=== PATIENT | male | born 1955 | race Caucasian/White ===

== ENCOUNTER 2018-10-16 13:10 | Inpatient (IN) | payer MEDICARE, OTHER ==
[2018-10-16 15:05] LABS: ADD MAN DIFF? NO
[2018-10-16] MEDS: CEFTRIAXONE 1 GM/50 ML (PMX) 50 ML IVPB (15:11)
[2018-10-16 15:13] LABS: WHITE BLOOD COUNT 6.9 10^3/ul (4.8-10.8)
[2018-10-16 15:13] LABS: BASOPHIL # 0.1 10^3/ul (0.0-0.1); BASOPHILS % 0.7 % (0.0-2.0); EOSINOPHILS # 0.4 10^3/ul (0.0-0.5); EOSINOPHILS % 5.7 % (0.0-7.0); HEMATOCRIT 42.6 % (42.0-52.0); HEMOGLOBIN 12.7 g/dl (14.0-18.0); LYMPHOCYTES # 0.8 10^3/ul (0.8-2.9); LYMPHOCYTES % 11.5 % (15.0-51.0); MEAN CORPUSCULAR HEMOGLOBIN 26.8 pg (29.0-33.0); MEAN CORPUSCULAR HGB CONC 29.8 g/dl (32.0-37.0); MEAN CORPUSCULAR VOLUME 90.1 fl (82.0-101.0); MEAN PLATELET VOLUME 9.2 fl (7.4-10.4); MONOCYTE # 0.5 10^3/ul (0.3-0.9); MONOCYTES % 7.4 % (0.0-11.0); NEUTROPHIL # 5.1 10^3/ul (1.6-7.5); NEUTROPHILS % 74.3 % (39.0-77.0); PLATELET COUNT 277 10^3/UL (140-415); RED BLOOD COUNT 4.73 10^6/ul (4.70-6.10); RED CELL DISTRIBUTION WIDTH 16.6 % (11.5-14.5)
[2018-10-16] MEDS: VANCOMYCIN IV PER PHARMACY XX (15:35)
[2018-10-16 15:36] LABS: ANION GAP 4 (5-13); BLOOD UREA NITROGEN 15 mg/dl (7-20); CALCIUM 8.5 mg/dl (8.4-10.2); CARBON DIOXIDE 33 mmol/L (21-31); CHLORIDE 101 mmol/L (97-110); CREATININE 1.04 mg/dl (0.61-1.24); Estimated GFR > 60 mL/min (>60); GLUCOSE 103 mg/dl (70-220); SODIUM 138 mmol/L (135-144)
[2018-10-16] MEDS: VANCOMYCIN 1 GM (PMX) 250 ML IVPB (15:40)
[2018-10-16 15:41] LABS: C-REACTIVE PROTEIN 3.3 mg/dl (0.0-0.9)
[2018-10-16 15:57] LABS: PROCALCITONIN 0.04 ng/mL (0.00-0.10)
[2018-10-16] MEDS ORDERED: ONDANSETRON 4 MG INJ IV ×2 (16:30→17:00)
[2018-10-16] MEDS ORDERED: ACETAMINOPHEN 325 MG TAB PO ×2 (16:30→17:00)
[2018-10-16 16:40] LABS: ERYTHROCYTE SEDIMENTATION RATE 22 mm/Hr (0-20)
[2018-10-16] MEDS ORDERED: MAGNESIUM HYDROXIDE 30ML CUP PO (17:00)
[2018-10-16] MEDS ORDERED: VANCOMYCIN IV PER PHARMACY XX (17:00)
[2018-10-16] MEDS ORDERED: NACL 0.9% 3 ML SYG IV (17:00)
[2018-10-16] MEDS ORDERED: CEFTRIAXONE 1 GM/50 ML (PMX) 50 ML IVPB (17:00)
[2018-10-16 17:29] LABS: CREATINE KINASE 70 IU/L (23-200)
[2018-10-16] MEDS ORDERED: METOPROLOL 5 MG INJ IV (17:30)
[2018-10-16 17:42] LABS: CK INDEX 3.3; CK-MB 2.29 ng/ml (0.0-2.4); TROPONIN-I < 0.012 ng/ml (0.000-0.120)
[2018-10-16] MEDS: FUROSEMIDE 20 MG TAB PO (20:58)
[2018-10-16] MEDS: HYDROCODONE/APAP (5/325) TAB PO (22:05)
[2018-10-16 23:00] LABS: CREATINE KINASE 64 IU/L (23-200)
[2018-10-16 23:13] LABS: CK INDEX 3.3; CK-MB 2.14 ng/ml (0.0-2.4); TROPONIN-I < 0.012 ng/ml (0.000-0.120)
[2018-10-17] MEDS: HYDROCODONE/APAP (5/325) TAB PO ×2 (04:32→20:45)
[2018-10-17 05:20] LABS: ADD MAN DIFF? NO
[2018-10-17 05:30] LABS: WHITE BLOOD COUNT 6.2 10^3/ul (4.8-10.8)
[2018-10-17 05:30] LABS: BASOPHIL # 0.1 10^3/ul (0.0-0.1); BASOPHILS % 1.1 % (0.0-2.0); EOSINOPHILS # 0.4 10^3/ul (0.0-0.5); EOSINOPHILS % 5.8 % (0.0-7.0); HEMOGLOBIN 12.1 g/dl (14.0-18.0); LYMPHOCYTES # 0.9 10^3/ul (0.8-2.9); LYMPHOCYTES % 14.1 % (15.0-51.0); MEAN CORPUSCULAR HEMOGLOBIN 26.6 pg (29.0-33.0); MEAN CORPUSCULAR HGB CONC 30.3 g/dl (32.0-37.0); MEAN CORPUSCULAR VOLUME 87.9 fl (82.0-101.0); MEAN PLATELET VOLUME 9.4 fl (7.4-10.4); MONOCYTE # 0.4 10^3/ul (0.3-0.9); MONOCYTES % 6.3 % (0.0-11.0); NEUTROPHIL # 4.5 10^3/ul (1.6-7.5); NEUTROPHILS % 72.4 % (39.0-77.0); PLATELET COUNT 260 10^3/UL (140-415); RED BLOOD COUNT 4.55 10^6/ul (4.70-6.10)
[2018-10-17 05:43] LABS: CREATINE KINASE 53 IU/L (23-200)
[2018-10-17 05:48] LABS: ALANINE AMINOTRANSFERASE 27 IU/L (13-69); ALBUMIN 2.8 g/dl (3.3-4.9); ALBUMIN/GLOBULIN RATIO 0.73; ALKALINE PHOSPHATASE 95 IU/L (42-121); ANION GAP 4 (5-13); ASPARTATE AMINO TRANSFERASE 27 IU/L (15-46); BILIRUBIN,INDIRECT 0.8 mg/dl (0-1.1); BILIRUBIN,TOTAL 0.8 mg/dl (0.2-1.3); BLOOD UREA NITROGEN 17 mg/dl (7-20); CALCIUM 8.3 mg/dl (8.4-10.2); CARBON DIOXIDE 30 mmol/L (21-31); CHLORIDE 104 mmol/L (97-110); CHOL/HDL RATIO 4.9 RATIO; CHOLESTEROL 108 mg/dl (100-200); Estimated GFR > 60 mL/min (>60); GLUCOSE 100 mg/dl (70-220); HDL CHOLESTEROL 22 mg/dl (30-78); LDL CHOLESTEROL,CALCULATED 74 mg/dl; MAGNESIUM 1.9 mg/dl (1.7-2.5); POTASSIUM 4.4 mmol/L (3.5-5.1); SODIUM 138 mmol/L (135-144); TOTAL PROTEIN 6.6 g/dl (6.1-8.1); TRIGLYCERIDES 62 mg/dl (0-149)
[2018-10-17 05:57] LABS: CK INDEX 3.6; CK-MB 1.93 ng/ml (0.0-2.4); TROPONIN-I < 0.012 ng/ml (0.000-0.120)
[2018-10-17 06:02] LABS: FREE THYROXINE INDEX (Calc) 2.72 ug/ml (0.65-3.89); T3 UPTAKE 50.3 % (23.5-40.5); T4 (THYROXINE) 5.4 ug/dl (5.5-11.0)
[2018-10-17] MEDS: PANTOPRAZOLE (EC) 40 MG TAB PO (06:14)
[2018-10-17] MEDS ORDERED: HEPARIN 25000 UNITS/250 ML 250 ML IV (08:30)
[2018-10-17] MEDS ORDERED: HEPARIN 1000 UNITS/ML 10 ML INJ IV ×2 (08:30)
[2018-10-17] MEDS: LEVOTHYROXINE 25 MCG TAB PO (08:31)
[2018-10-17] MEDS: DIGOXIN 0.25 MG TAB PO (08:31)
[2018-10-17] MEDS: FUROSEMIDE 20 MG TAB PO ×2 (08:32→20:44)
[2018-10-17] MEDS: AMLODIPINE 5 MG TAB PO (08:32)
[2018-10-17] MEDS: BENAZEPRIL 20 MG TAB PO (08:32)
[2018-10-17] MEDS: ENOXAPARIN 100 MG/ML SYG SC ×2 (09:57→21:51)
[2018-10-17] MEDS ORDERED: CEFTRIAXONE 1 GM/50 ML (PMX) 50 ML IVPB (17:30)
[2018-10-17] MEDS: AMPICILLIN/SULB 3 GM/NS (PMX) 100 ML IVPB (18:28)
[2018-10-17] MEDS: VANCOMYCIN HCL 2 GM in SOD CHLORIDE 0.9% 500 ML IVPB (19:48)
[2018-10-18] MEDS: AMPICILLIN/SULB 3 GM/NS (PMX) 100 ML IVPB ×5 (00:11→23:49)
[2018-10-18] MEDS: PANTOPRAZOLE (EC) 40 MG TAB PO (05:46)
[2018-10-18] MEDS: LEVOTHYROXINE 25 MCG TAB PO ×2 (05:46→08:37)
[2018-10-18 06:15] LABS: HEMATOCRIT 40.1 % (42.0-52.0); HEMOGLOBIN 12.3 g/dl (14.0-18.0); MEAN CORPUSCULAR HEMOGLOBIN 26.6 pg (29.0-33.0); MEAN CORPUSCULAR HGB CONC 30.7 g/dl (32.0-37.0); MEAN CORPUSCULAR VOLUME 86.8 fl (82.0-101.0); MEAN PLATELET VOLUME 9.4 fl (7.4-10.4); PLATELET COUNT 244 10^3/UL (140-415); POSITIVE DIFF @See below; RED BLOOD COUNT 4.62 10^6/ul (4.70-6.10); RED CELL DISTRIBUTION WIDTH 16.9 % (11.5-14.5)
[2018-10-18 06:15] LABS: WHITE BLOOD COUNT 5.2 10^3/ul (4.8-10.8)
[2018-10-18 06:23] LABS: ADD MAN DIFF? YES
[2018-10-18 06:39] LABS: ANION GAP 5 (5-13); BLOOD UREA NITROGEN 21 mg/dl (7-20); CALCIUM 8.2 mg/dl (8.4-10.2); CARBON DIOXIDE 28 mmol/L (21-31); CHLORIDE 102 mmol/L (97-110); CREATININE 1.14 mg/dl (0.61-1.24); GLUCOSE 98 mg/dl (70-220); MAGNESIUM 1.8 mg/dl (1.7-2.5); POTASSIUM 4.2 mmol/L (3.5-5.1); SODIUM 135 mmol/L (135-144)
[2018-10-18 07:41] LABS: ANISOCYTOSIS 1+ (0-0); BAND NEUTROPHILS #M 0.1 10^3/ul (0.0-0.6); BAND NEUTROPHILS % (M) 3 % (0-4); BASOPHILS % (M) 1 % (0-2); BURR CELLS 1+ (0-0); EOSINOPHILS % (M) 2 % (0-7); GIANT THROMBO% (M) 7 % (0-0); HYPOCHROMASIA 1+ (0-0); LYMPHOCYTES % (M) 20 % (15-51); MICROCYTOSIS 1+ (0-0); MONOCYTE #M 0.2 10^3/ul (0.3-0.9); MONOCYTES % (M) 4 % (0-11); OVALOCYTES 1+ (0-0); PLATELET ESTIMATE NORMAL; POIKILOCYTOSIS 2+ (0-0); POLYCHROMASIA 1+ (0-0); SEG NEUT #M 3.6 10^3/ul (1.6-7.5); SEGMENTED NEUTROPHILS (M) % 70 % (39-77); SMUDGE%M 5 % (0-0)
[2018-10-18] MEDS: VANCOMYCIN HCL 1.75 GM in SOD CHLORIDE 0.9% 500 ML IVPB (08:34)
[2018-10-18] MEDS: BENAZEPRIL 20 MG TAB PO (08:36)
[2018-10-18] MEDS: DIGOXIN 0.25 MG TAB PO (08:37)
[2018-10-18] MEDS: AMLODIPINE 5 MG TAB PO (08:37)
[2018-10-18] MEDS: FUROSEMIDE 20 MG TAB PO ×2 (08:38→21:15)
[2018-10-18] MEDS ORDERED: POLYMYXIN B 500000 UNIT INJ ×2 (10:27→10:35)
[2018-10-18] MEDS ORDERED: FENTAnyl 50 MCG/ML VIAL IV ×3 (10:30)
[2018-10-18] MEDS ORDERED: ONDANSETRON 4 MG INJ IV (10:30)
[2018-10-18] MEDS ORDERED: OXYCODONE/ACETAMINOPHEN (5/325) TAB PO ×2 (10:30)
[2018-10-18] MEDS ORDERED: MEPERIDINE 25 MG INJ IV (10:30)
[2018-10-18] MEDS ORDERED: PROPOFOL 20 ML (10:33)
[2018-10-18] MEDS ORDERED: FENTAnyl 50 MCG/ML VIAL (10:33)
[2018-10-18] MEDS ORDERED: MIDAZOLAM 1 MG/ML 2 ML INJ (10:34)
[2018-10-18] MEDS: morphine 2 MG INJ IV (22:17)
[2018-10-19] MEDS: AMPICILLIN/SULB 3 GM/NS (PMX) 100 ML IVPB ×2 (05:38→12:09)
[2018-10-19] MEDS: PANTOPRAZOLE (EC) 40 MG TAB PO (05:38)
[2018-10-19 08:28] LABS: ADD MAN DIFF? NO
[2018-10-19 08:51] LABS: BASOPHIL # 0.1 10^3/ul (0.0-0.1); BASOPHILS % 0.9 % (0.0-2.0); EOSINOPHILS # 0.2 10^3/ul (0.0-0.5); EOSINOPHILS % 3.9 % (0.0-7.0); HEMATOCRIT 43.3 % (42.0-52.0); HEMOGLOBIN 12.9 g/dl (14.0-18.0); LYMPHOCYTES # 0.7 10^3/ul (0.8-2.9); LYMPHOCYTES % 11.6 % (15.0-51.0); MEAN CORPUSCULAR HEMOGLOBIN 26.7 pg (29.0-33.0); MEAN CORPUSCULAR HGB CONC 29.8 g/dl (32.0-37.0); MEAN CORPUSCULAR VOLUME 89.6 fl (82.0-101.0); MEAN PLATELET VOLUME 9.8 fl (7.4-10.4); MONOCYTE # 0.5 10^3/ul (0.3-0.9); MONOCYTES % 9.3 % (0.0-11.0); NEUTROPHIL # 4.1 10^3/ul (1.6-7.5); NEUTROPHILS % 73.9 % (39.0-77.0); PLATELET COUNT 240 10^3/UL (140-415); RED BLOOD COUNT 4.83 10^6/ul (4.70-6.10); RED CELL DISTRIBUTION WIDTH 16.9 % (11.5-14.5)
[2018-10-19 08:51] LABS: WHITE BLOOD COUNT 5.6 10^3/ul (4.8-10.8)
[2018-10-19] MEDS: DIGOXIN 0.25 MG TAB PO (08:52)
[2018-10-19] MEDS: FUROSEMIDE 20 MG TAB PO ×2 (08:53→20:19)
[2018-10-19] MEDS: LEVOTHYROXINE 25 MCG TAB PO (08:59)
[2018-10-19 09:00] LABS: ALBUMIN 3.1 g/dl (3.3-4.9); ANION GAP 4 (5-13); BLOOD UREA NITROGEN 19 mg/dl (7-20); CALCIUM 8.1 mg/dl (8.4-10.2); CARBON DIOXIDE 31 mmol/L (21-31); CHLORIDE 102 mmol/L (97-110); GLUCOSE 94 mg/dl (70-220); MAGNESIUM 1.8 mg/dl (1.7-2.5); PHOSPHORUS 4.2 mg/dl (2.5-4.9); POTASSIUM 4.3 mmol/L (3.5-5.1); SODIUM 137 mmol/L (135-144)
[2018-10-19] MEDS: AMLODIPINE 5 MG TAB PO (09:00)
[2018-10-19] MEDS: BENAZEPRIL 20 MG TAB PO (09:00)
[2018-10-19] MEDS ORDERED: VANCOMYCIN IV PER PHARMACY XX (15:00)
[2018-10-19] MEDS: morphine 2 MG INJ IV ×2 (16:22→20:26)
[2018-10-19] MEDS: CEFTRIAXONE 2 GM/50 ML (PMX) 50 ML IVPB (16:52)
[2018-10-19] MEDS: APIXABAN 5 MG TABLET PO (20:19)
[2018-10-19] MEDS: VANCOMYCIN HCL 2 GM in SOD CHLORIDE 0.9% 500 ML IVPB (20:20)
[2018-10-19] MEDS: HYDROCODONE/APAP (5/325) TAB PO (23:19)
[2018-10-20] MEDS: morphine 2 MG INJ IV (03:15)
[2018-10-20] MEDS: HYDROCODONE/APAP (5/325) TAB PO (05:08)
[2018-10-20] MEDS: PANTOPRAZOLE (EC) 40 MG TAB PO (05:08)
[2018-10-20] MEDS: VANCOMYCIN HCL 1.75 GM in SOD CHLORIDE 0.9% 500 ML IVPB ×2 (05:08→18:00)
[2018-10-20] MEDS: DOCUSATE SODIUM 100 MG CAP PO (05:13)
[2018-10-20] MEDS: APIXABAN 5 MG TABLET PO (08:12)
[2018-10-20] MEDS: BENAZEPRIL 20 MG TAB PO (08:12)
[2018-10-20] MEDS: DIGOXIN 0.25 MG TAB PO (08:12)
[2018-10-20] MEDS: LEVOTHYROXINE 25 MCG TAB PO (08:13)
[2018-10-20] MEDS: FUROSEMIDE 20 MG TAB PO (08:13)
[2018-10-20] MEDS: AMLODIPINE 5 MG TAB PO (08:13)
[2018-10-20 08:41] LABS: ADD MAN DIFF? NO
[2018-10-20 08:42] LABS: WHITE BLOOD COUNT 4.9 10^3/ul (4.8-10.8)
[2018-10-20 08:42] LABS: BASOPHILS % 0.8 % (0.0-2.0); EOSINOPHILS # 0.2 10^3/ul (0.0-0.5); EOSINOPHILS % 4.5 % (0.0-7.0); HEMATOCRIT 41.1 % (42.0-52.0); LYMPHOCYTES # 0.9 10^3/ul (0.8-2.9); LYMPHOCYTES % 17.9 % (15.0-51.0); MEAN CORPUSCULAR HEMOGLOBIN 26.1 pg (29.0-33.0); MEAN CORPUSCULAR HGB CONC 29.2 g/dl (32.0-37.0); MEAN CORPUSCULAR VOLUME 89.5 fl (82.0-101.0); MEAN PLATELET VOLUME 9.8 fl (7.4-10.4); MONOCYTE # 0.4 10^3/ul (0.3-0.9); MONOCYTES % 7.6 % (0.0-11.0); NEUTROPHIL # 3.3 10^3/ul (1.6-7.5); PLATELET COUNT 222 10^3/UL (140-415); RED BLOOD COUNT 4.59 10^6/ul (4.70-6.10); RED CELL DISTRIBUTION WIDTH 16.7 % (11.5-14.5)
[2018-10-20 09:09] LABS: ALBUMIN 2.8 g/dl (3.3-4.9); ANION GAP 4 (5-13); BLOOD UREA NITROGEN 17 mg/dl (7-20); CALCIUM 7.9 mg/dl (8.4-10.2); CARBON DIOXIDE 31 mmol/L (21-31); CHLORIDE 101 mmol/L (97-110); CREATININE 1.04 mg/dl (0.61-1.24); GLUCOSE 99 mg/dl (70-220); MAGNESIUM 1.8 mg/dl (1.7-2.5); PHOSPHORUS 3.7 mg/dl (2.5-4.9); POTASSIUM 4.1 mmol/L (3.5-5.1); SODIUM 136 mmol/L (135-144)
[2018-10-20] MEDS: CEFTRIAXONE 2 GM/50 ML (PMX) 50 ML IVPB (15:35)
[2018-10-21] MEDS ORDERED: BENAZEPRIL 20 MG TAB PO (09:00)
== END 2018-10-20 18:55 | disposition home health service (06) | DRG 264 ==
LOC: TEL 10-17 00:06 → E/R 13:10 → PP2 17:13
PROC: 0JBR0ZZ Excision of Left Foot Subcutaneous Tissue and Fascia, Open Approach (ICD-10-PCS; principal; 2018-10-18 10:42)
PROC: 0JBN0ZZ Excision of Right Lower Leg Subcutaneous Tissue and Fascia, Open Approach (ICD-10-PCS; 2018-10-18 10:42)
DX: I70.248 Atherosclerosis of native arteries of left leg with ulceration of other part of lower leg (principal); I50.33 Acute on chronic diastolic (congestive) heart failure; L03.115 Cellulitis of right lower limb; L03.116 Cellulitis of left lower limb; L97.829 Non-pressure chronic ulcer of other part of left lower leg with unspecified severity; I70.238 Atherosclerosis of native arteries of right leg with ulceration of other part of lower leg; L97.529 Non-pressure chronic ulcer of other part of left foot with unspecified severity; I11.0 Hypertensive heart disease with heart failure; I48.2 Chronic atrial fibrillation; E87.70 Fluid overload, unspecified; E66.01 Morbid (severe) obesity due to excess calories; E03.9 Hypothyroidism, unspecified; E78.5 Hyperlipidemia, unspecified; Z68.35 Body mass index [BMI] 35.0-35.9, adult; D64.9 Anemia, unspecified
CPT/HCPCS: 11042; 73590; 73610-RT; 73630; 80048; 80053; 80061; 80069; 82550; 82553; 83735; 84145; 84436; 84443; 84479; 84484; 85025; 85651; 86140; 87040-91; 87070; 87075; 87102; 93005; 93306; 96365; 96367; 97162; 97167; 99285-25